=== PATIENT | male | born 1980 | race Caucasian/White ===

== ENCOUNTER → 2018-08-14 | Outpatient (CLI) | payer OTHER ==
[~2018-08-14] MED LIST: ZOLOFT 50MG50 MG PO
== END ==
LOC: COL.RAD 15:51
DX: M25.511 Pain in right shoulder (principal); G89.29 Other chronic pain

== ENCOUNTER → 2018-09-13 | Outpatient (CLI) | payer OTHER | LOC: COL.RAD 07:22 | DX: S43.401A Unspecified sprain of right shoulder joint, initial encounter (principal); M71.311 Other bursal cyst, right shoulder ==

== ENCOUNTER 2018-11-05 07:11 | Day surgery (SDC) | payer OTHER ==
[~2018-11-05] VITALS: Ht 177.8 cm; Wt 82.5 kg
[2018-11-05 08:00] VITALS: BP 127/70; PULSE 76; TEMP 97.5
[2018-11-05 10:00] VITALS: BP 127/92; PULSE 72; TEMP 97.3
--- NOTE | 2018-11-05 10:00 | NUR ---
The patient arrived back to [facility] from the recovery room at this time. The patient reports increased pain in his right shoulder at this time. The patient has an ice pack in place to his right shoulder at this time. The patient was given 2mg of morphine IV at this time. The patient agrees to try some water and chocolate pudding at this time. Call light is within reach. Will continue to monitor the patient.
--- NOTE | 2018-11-05 10:10 | NUR ---
The patient was given a repeat dose of morphine 2 mg IV at this time. The patient appears to be tolerating the water and pudding well. The patient's vital signs appear stable. Will continue to monitor the patient.
[2018-11-05 10:15] VITALS: BP 143/89; PULSE 82
[2018-11-05] MEDS ORDERED: ROXICODONE 55 MG/TAB PO (10:22)
[2018-11-05 10:30] VITALS: BP 135/93; PULSE 67
--- NOTE | 2018-11-05 10:30 | NUR ---
The patient appears to be resting more comfortably on the cart at this time. The patient's parents are at his bedside at this time. The patient was given a PRN dose of tramodol 100 mg by mouth at this time. Vital signs appear stable. Will continue to monitor the patient.
[2018-11-05 10:45] VITALS: BP 138/85; PULSE 72
--- NOTE | 2018-11-05 10:45 | NUR ---
The patient appears to be resting comfortably on the cart at this time. The patient requests that the ice pack to his right shoulder be removed at this time. The patient's parents remain at this bedside. Vital signs appear stable. Will cotinue to monitor the patient.
[2018-11-05 11:00] VITALS: BP 127/87; PULSE 68
--- NOTE | 2018-11-05 11:00 | NUR ---
Discharge instructions were reviewed with the patient and his parents at this time. They all verbalized understanding and have no questions for the nurse at this time. The patient's IV to his left anecubital was removed and a pressure dressing was applied to the site. The nurse instructed the patient to get dressed and notify the staff when he is ready to be escorted out.
--- NOTE | 2018-11-05 11:10 | NUR ---
The patient ambulated out to a private vehicle escorted by TONI Arreguin using a steady gait at this time. The patient's belongings and discharge paperwork were sent with him. The patient's parents are present to drive him home.
== END 2018-11-05 11:10 | disposition home or self-care (01) ==
LOC: SDCO 07:11
DX: M75.01 Adhesive capsulitis of right shoulder (principal); Z88.1 Allergy status to other antibiotic agents; Z88.0 Allergy status to penicillin; Z82.62 Family history of osteoporosis
CPT/HCPCS: J1885; J2270; J2704; J3301; J7120

== ENCOUNTER 2018-12-11 09:45 | Outpatient (RCR) | payer OTHER ==
[~2018-12-11 09:45] MED LIST changes: +ROXICODONE 55 MG/TAB PO
== END 2019-01-21 | disposition home or self-care (01) ==
LOC: WSPT
DX: M75.01 Adhesive capsulitis of right shoulder (principal)

== ENCOUNTER → 2023-01-16 | Outpatient (CLI) | payer OTHER | LOC: COL.RAD 14:38 | DX: K40.90 Unilateral inguinal hernia, without obstruction or gangrene, not specified as recurrent (principal); J43.2 Centrilobular emphysema | CPT/HCPCS: Q9967 ==

== ENCOUNTER 2023-02-06 07:35 | Day surgery (SDC) | payer OTHER ==
[~2023-02-06] VITALS: Ht 177.8 cm; Wt 81.3 kg
[2023-02-06 09:45] VITALS: BP 115/89; PULSE 73; TEMP 97.8
--- NOTE | 2023-02-06 09:45 | NUR ---
PATIENT AMBULATED TO CHAIR WITH STEADY GAIT. PATIENT ALERT AND ORIENTED X3, DENIES PAIN AND NAUSEA. BREATHING REGULAR AND UNLABORED. SEE CHART FOR VITAL SIGNS. NURSE HANDOFF COMPLETED IN ROOM. PATIENT HAD A MUFFIN AND WATER, BOTH TOLERATED WELL. CALL LIGHT IN REACH.
[2023-02-06 10:00] VITALS: BP 110/82; PULSE 64
[2023-02-06 10:15] VITALS: BP 106/76; PULSE 69
--- NOTE | 2023-02-06 10:15 | NUR ---
PATIENT DENIES PAIN AND NAUSEA. MET WITH PATIENT IN ROOM TO DISCUSS PROCEDURE.
[2023-02-06 10:30] VITALS: BP 115/67; PULSE 71
--- NOTE | 2023-02-06 10:30 | NUR ---
PATIENT TOLERATING FOOD AND DRINK, DENIES PAIN AND NAUSEA. DISCHARGE TEACHING COMPLETED WITH PRINTED EDUCATION AND INSTRUCTIONS SENT HOME WITH PATIENT. PATIENT VERBALIZED UNDERSTANDING OF TEACHING. IV REMOVED. PATIENT DISCHARGED HOME WITH MOTHER, DAVID, TRANSPORT.
[2023-02-06 11:10] VITALS: BP 118/82; PULSE 74; TEMP 97.7
== END 2023-02-06 10:43 | disposition home or self-care (01) ==
LOC: SDCO 07:35
DX: K63.5 Polyp of colon (principal); K57.30 Diverticulosis of large intestine without perforation or abscess without bleeding; K64.0 First degree hemorrhoids; K64.4 Residual hemorrhoidal skin tags
CPT/HCPCS: J2704; J3010; J7120

== ENCOUNTER → 2023-07-05 | Outpatient (CLI) | payer OTHER ==
[~2023-07-05] MED LIST changes: +MAGNESIUM200 MG PO; +PHARMASSURE ZIN50 MG PO; +ULTRAM 50MG TAB50 MG PO
[2023-07-05 08:30] LABS: BASO % 0.4 % (0.0-2.0); EOS % 0.4 % (0.0-4.0); GRAN # 2.6 K/mm3 (1.4-6.5); GRAN % 55.2 % (42.2-75.2); HEMATOCRIT 43.7 % (42.0-52.0); HEMOGLOBIN 15.3 g/dl (13.5-18.0); LYMPH # 1.7 K/mm3 (1.2-3.4); LYMPH % 35.4 % (20.0-51.0); MEAN CELL VOLUME 88 fl (80.0-100.0); MEAN CORPUSCULAR HEMOGLOBIN 31 pg (27-31); MEAN CORPUSCULAR HGB CONC 35 g/dl (33.0-37.0); MEAN PLATELET VOLUME 11.7 fl (7.4-10.4); MONO # 0.4 K/mm3 (0.1-0.6); MONO % 8.4 % (1.7-9.3); PLATELET COUNT 162 K/mm3 (130-400); RED BLOOD COUNT 4.98 M/mm3 (4.20-5.60); REDCELL DISTRIBUTION WIDTH-CV 12.5 % (11.5-14.5)
[2023-07-05 09:03] LABS: ALBUMIN 5.1 gm/dL (3.5-5.0); BILIRUBIN,TOTAL 0.8 mg/dL (0.2-1.2); C-REACTIVE PROTEIN 0.12 mg/dL (0.00-0.50); CALCIUM 10.6 mg/dL (8.4-10.2); CREATININE, serum 1.1 mg/dL (0.72-1.25); POTASSIUM 3.9 mmol/L (3.5-4.5); TOTAL PROTEIN 8.4 gm/dL (6.2-8.1)
[2023-07-05 09:15] LABS: ERYTHROCYTE SEDIMENTATION RATE 1 mm/hr (0-15)
[2023-07-05 17:01] LABS: IMMUNOGLOBULIN A 189 mg/dL (63-484); IMMUNOGLOBULIN G 1044 mg/dL (540-1822); IMMUNOGLOBULIN M, QUANTITATIVE 230 mg/dL (22-240)
[2023-07-06 12:59] LABS: SJOGRENS SSB 15 U/mL (0-99)
[2023-07-06 17:43] LABS: C-ANCA 25 U/mL (0-99)
[2023-07-08 20:08] LABS: ALDOLASE 5.8 U/L (3.3-10.3)
== END ==
LOC: COL.LAB 07-04 08:25
PROVIDERS: Internal Medicine Pulmonary Disease
DX: J98.4 Other disorders of lung (principal)

== ENCOUNTER → 2024-05-26 | Outpatient (CLI) | payer OTHER ==
[2024-05-26 08:38] LABS: COLLECTION METHOD CLEAN CATCH
[2024-05-26 08:40] LABS: BASO % 0.4 % (0.0-2.0); EOS # 0.1 K/mm3 (0.0-0.7); EOS % 1.2 % (0.0-4.0); GRAN # 2.8 K/mm3 (1.4-6.5); GRAN % 56.5 % (42.2-75.2); HEMATOCRIT 37.4 % (42.0-52.0); HEMOGLOBIN 12.9 g/dl (13.5-18.0); LYMPH # 1.7 K/mm3 (1.2-3.4); LYMPH % 33.9 % (20.0-51.0); MEAN CELL VOLUME 87 fl (80.0-100.0); MEAN CORPUSCULAR HEMOGLOBIN 30 pg (27-31); MEAN CORPUSCULAR HGB CONC 35 g/dl (33.0-37.0); MEAN PLATELET VOLUME 11.3 fl (7.4-10.4); MONO # 0.4 K/mm3 (0.1-0.6); PLATELET COUNT 183 K/mm3 (130-400); RED BLOOD COUNT 4.31 M/mm3 (4.20-5.60); REDCELL DISTRIBUTION WIDTH-CV 11.8 % (11.5-14.5)
[2024-05-26 08:45] LABS: PH 5.5 (5.0-8.5); URINE APPEARANCE CLEAR (CLEAR/HAZY); URINE BLOOD NEGATIVE (NEGATIVE); URINE COLOR YELLOW (YELLOW); URINE GLUCOSE NEGATIVE (NEGATIVE); URINE KETONE NEGATIVE (NEGATIVE); URINE NITRATE NEGATIVE (NEGATIVE); URINE PROTEIN(semi-quant) NEGATIVE (NEGATIVE); URINE UROBILINOGEN 0.2 E.U/dL (0.2-1.0)
[2024-05-26 09:02] LABS: ALBUMIN 4.4 g/dL (3.5-5.0); BILIRUBIN,TOTAL 0.6 mg/dL (0.2-1.2); CALCIUM 9.7 mg/dL (8.4-10.2); CHOLESTEROL RISK RATIO 2.5; CREATININE, serum 1.08 mg/dL (0.72-1.25); POTASSIUM 4.2 mEq/L (3.5-4.5); TOTAL PROTEIN 7.6 g/dl (6.2-8.1)
== END ==
LOC: COL.LAB 08:12
PROVIDERS: Family Medicine
DX: Z00.00 Encounter for general adult medical examination without abnormal findings (principal)